=== PATIENT | male | born 1995 | race Native Hawaiian/Other Pacific Islander ===

== ENCOUNTER 2016-03-27 12:25 | Emergency (ER) | payer BC ==
[~2016-03-27] VITALS: Ht 182.9 cm; Wt 94.3 kg
[2016-03-27 12:52] LABS: PLATELET COUNT 282 K/uL (142-355)
[2016-03-27 13:03] LABS: POTASSIUM 4.1 mmol/L (3.6-5.2); SODIUM 136 mmol/L (136-145)
[2016-03-27 14:04] VITALS: BP 140/90; TEMP 98.6
== END 2016-03-27 14:07 | disposition home or self-care (01) ==
LOC: ED 12:25
DX: R59.1 Generalized enlarged lymph nodes (principal)
CPT/HCPCS: 36415; 80053; 85027; 87081; 87804; 87880; 99283

== ENCOUNTER 2020-12-29 18:54 | Emergency (ER) | payer OTHER ==
[~2020-12-29] VITALS: Ht 180.3 cm; Wt 89.4 kg
[2020-12-29 21:05] VITALS: BP 127/77; TEMP 99.1
== END 2020-12-29 21:05 | disposition home or self-care (01) ==
LOC: ED 18:54
PROC: 2W3DX1Z Immobilization of Left Lower Arm using Splint (ICD-10-PCS; principal; 2020-12-29)
PROC: 0PSQXZZ Reposition Left Metacarpal, External Approach (ICD-10-PCS; 2020-12-29)
PROC: 0PSQXZZ Reposition Left Metacarpal, External Approach (ICD-10-PCS; 2020-12-29)
DX: S62.395A Other fracture of fourth metacarpal bone, left hand, initial encounter for closed fracture (principal); S62.397A Other fracture of fifth metacarpal bone, left hand, initial encounter for closed fracture; W22.09XA Striking against other stationary object, initial encounter; Y92.89 Other specified places as the place of occurrence of the external cause
CPT/HCPCS: 99284; J2001